=== PATIENT | female | born 1970 | race Caucasian/White ===

== ENCOUNTER 2017-09-05 22:16 | Emergency (ER) | payer MEDICAID ==
[~2017-09-05] VITALS: Ht 170.2 cm; Wt 113.8 kg
[2017-09-05 22:35] VITALS: Ht 170.2 cm; Wt 113.8 kg
[2017-09-06 00:35] VITALS: BP 114/66
== END 2017-09-06 00:35 | disposition home or self-care (01) ==
LOC: ED 22:16
DX: L03.116 Cellulitis of left lower limb (principal)
CPT/HCPCS: J0696

== ENCOUNTER 2017-09-18 15:02 | Emergency (ER) | payer MEDICAID ==
[~2017-09-18] VITALS: Ht 165.1 cm; Wt 106.6 kg
[2017-09-18 15:06] VITALS: Ht 165.1 cm; Wt 106.6 kg
[2017-09-18 17:47] VITALS: BP 148/77
== END 2017-09-18 17:47 | disposition home or self-care (01) ==
LOC: ED 15:02
DX: I87.8 Other specified disorders of veins (principal)

== ENCOUNTER 2017-09-24 21:28 | Emergency (ER) | payer MEDICAID ==
[2017-09-24 22:22] LABS: BASOPHIL % 0.4 % (0-2); PLATELET COUNT 292 x10^3mcL (130-400)
[2017-09-24 22:42] LABS: CALCIUM 9.1 mg/dL (8.5-10.1); CARBON DIOXIDE 28.9 mmol/L (21-32); CHLORIDE SERUM 102 mmol/L (98-107); CREATININE SERUM 0.7 mg/dL (0.6-1.0); GFR1 > 60 mL/min; GLUCOSE SERUM 109 mg/dL (74-106); POTASSIUM SERUM 3.5 mmol/L (3.5-5.1); SODIUM SERUM 139 mmol/L (136-145)
[2017-09-24 22:46] LABS: ALBUMIN 3.5 g/dL (3.4-5.0); ALKALINE PHOSPHATASE 90 U/L (46-116); ALT/SGPT 32 U/L (14-59); AST/SGOT 27 U/L (15-37); BILIRUBIN TOTAL 0.22 mg/dL (0.20-1.00); CHOLESTEROL 149 mg/dL (<200); HDL CHOLESTEROL 51 mg/dL (40-60); MAGNESIUM 2.2 mg/dL (1.8-2.4); TOTAL PROTEIN, SERUM 7.6 g/dL (6.4-8.2)
[2017-09-25 00:01] VITALS: BP 147/90
== END 2017-09-25 00:01 | disposition home or self-care (01) ==
LOC: ED 21:28
PROVIDERS: Emergency Medicine
DX: R42 Dizziness and giddiness (principal); L03.116 Cellulitis of left lower limb; T40.4X5A Adverse effect of other synthetic narcotics, initial encounter; Y92.89 Other specified places as the place of occurrence of the external cause
CPT/HCPCS: 36415; 83880; J8597; Q0162

== ENCOUNTER 2017-11-06 20:44 | Emergency (ER) | payer MEDICAID ==
[~2017-11-06] VITALS: Ht 172.7 cm; Wt 108.0 kg
[2017-11-06 20:48] VITALS: Ht 172.7 cm; Wt 108.0 kg
[2017-11-06 21:46] VITALS: BP 147/74
== END 2017-11-06 21:46 | disposition home or self-care (01) ==
LOC: ED 20:44
DX: I87.2 Venous insufficiency (chronic) (peripheral) (principal); L03.116 Cellulitis of left lower limb

== ENCOUNTER 2018-01-24 00:48 | Emergency (ER) | payer OTHER ==
[~2018-01-24] VITALS: Ht 167.6 cm; Wt 105.7 kg
[2018-01-24 01:06] VITALS: Ht 167.6 cm; Wt 105.7 kg
[2018-01-24 02:33] VITALS: BP 141/89
== END 2018-01-24 02:33 | disposition home or self-care (01) ==
LOC: ED 00:48
DX: T81.4XXA Infection following a procedure, initial encounter (principal); L08.9 Local infection of the skin and subcutaneous tissue, unspecified; I10 Essential (primary) hypertension; Z90.89 Acquired absence of other organs; Z90.49 Acquired absence of other specified parts of digestive tract
CPT/HCPCS: 82962; Q0092

== ENCOUNTER 2018-06-30 12:26 | Emergency (ER) | payer OTHER ==
[~2018-06-30] VITALS: Ht 165.1 cm; Wt 107.2 kg
[2018-06-30 12:51] VITALS: Ht 165.1 cm; Wt 107.2 kg
[2018-06-30 14:56] VITALS: BP 121/71
== END 2018-06-30 14:56 | disposition home or self-care (01) ==
LOC: ED 12:26
DX: S62.522A Displaced fracture of distal phalanx of left thumb, initial encounter for closed fracture (principal); I10 Essential (primary) hypertension; Z90.49 Acquired absence of other specified parts of digestive tract; Z90.89 Acquired absence of other organs; W22.8XXA Striking against or struck by other objects, initial encounter; Y93.89 Activity, other specified; Y92.89 Other specified places as the place of occurrence of the external cause; Y99.8 Other external cause status